=== PATIENT | female | born 1930 | race Caucasian/White ===

== ENCOUNTER → 2016-10-07 | Outpatient (CLI) | payer OTHER | LOC: BMCIMAGING 12:25 | PROVIDERS: ATTEND Internal Medicine | DX: I51.7 Cardiomegaly (principal); J98.4 Other disorders of lung; I77.89 Other specified disorders of arteries and arterioles; R53.83 Other fatigue; R63.4 Abnormal weight loss; R00.0 Tachycardia, unspecified ==

== ENCOUNTER 2016-11-26 12:08 | Emergency (ER) | payer OTHER ==
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
[2016-11-26 13:28] VITALS: BP 158/85; PULSE 72; RESP 16; TEMP 97.7; O2SAT 94
== END 2016-11-26 13:33 | disposition home or self-care (01) ==
DX: K43.2 Incisional hernia without obstruction or gangrene (principal); J44.9 Chronic obstructive pulmonary disease, unspecified

== ENCOUNTER 2016-12-15 12:35 | Emergency (ER) | payer MEDICAID, OTHER ==
--- NOTE | 2016-12-15 12:54 | CPEKG ---
Heart Rate: 88 RR Interval: 682 P-R Interval: 170 QRSD Interval: 94 QT Interval: 372 QTC Interval: 450 P [place]: 0 QRS [place]: -29 T Wave [place]: 116 EKG Severity - ABNORMAL ECG - EKG Impression: SINUS RHYTHM EKG Impression: MULTIPLE ATRIAL PREMATURE COMPLEXES EKG Impression: LVH WITH SECONDARY REPOLARIZATION ABNORMALITY Electronically Signed By: Molly Harley 15-Dec-2016 21:16:05
--- NOTE | 2016-12-15 13:26 | EDPHY ---
H & P Time Seen by Provider: 12/15/16 12:59 HPI/ROS: CHIEF COMPLAINT: Left-sided chest pain HISTORY OF PRESENT ILLNESS: 86-year-old female with a history of COPD and atrial fibrillation presents with a one-week history of left-sided chest pain. The chest pain is intermittent and increases with deep inspiration and coughing. Onset of a productive cough 4 days ago, associated with exertional shortness of breath. She uses an inhaler 3 times daily as needed for shortness of breath. No fever. No prior history of pulmonary embolism or congestive heart failure. REVIEW OF SYSTEMS: Constitutional: No fever, no chills Eyes: No visual changes ENT: No sore throat Gastrointestinal: No nausea, no vomiting, no abdominal pain Genitourinary: No hematuria, no dysuria Musculoskeletal: No leg pain or swelling Skin: No rash Neurological: No headache, no numbness, no weakness Psychiatric: No depression Past Medical/Surgical History: COPD Social History: PCP: Dr. Bee Mena Smoking Status: Never smoked Physical Exam: General Appearance: Alert, [id number], normal respiratory rate Eyes: Pupils equal and round, no conjunctival pallor or injection ENT, Mouth: Mucous membranes moist Neck: Normal inspection Respiratory: Lungs are clear to auscultation, no wheezing Cardiovascular: irregularly irregular rate and rhythm Gastrointestinal: Abdomen is soft and nontender Neurological: A&O, nonfocal, normal gait Skin: Warm and dry, no rash Extremities: Nontender, no pedal edema Psychiatric: Mood and affect normal Constitutional: Initial Vital Signs Temperature (C) 36.3 C 12/15/16 12:39 Heart Rate 91 12/15/16 12:39 Respiratory Rate 22 H 12/15/16 12:39 Blood Pressure 151/103 H 12/15/16 12:39 O2 Sat (%) 89 L 12/15/16 12:39 O2 Delivery Mode Room Air O2 (L/minute) 2 Allergies/Adverse Reactions: aspirin [Aspirin] Allergy (Severe, Verified 12/15/16 12:37) Other-Enter Comments codeine [Codeine] Allergy (Severe, Verified 12/15/16 12:37) Vomiting hylan G-F 20 [From Synvisc] Allergy (Severe, Verified 12/15/16 12:37) Swelling morphine [Morphine] Allergy (Severe, Verified 12/15/16 12:37) Vomiting rofecoxib [From Vioxx] Allergy (Severe, Verified 12/15/16 12:37) Swelling ciprofloxacin [From Cipro] Allergy (Verified 12/15/16 12:37) Swelling/neck,face,throat ciprofloxacin HCl [From Cipro] Allergy (Verified 12/15/16 12:37) Swelling/neck,face,throat Home Medications: Medication Instructions Recorded Synthroid 11/26/16 Doxycycline Hyclate 100 mg PO BID #20 tablet 12/15/16 Medical Decision Making - Diagnostics EKG Interpretation: EKG interpreted by me reveals atrial fibrillation, ventricular rate 88, LVH. Imaging Results: Chest x-ray independently reviewed by me reveals no acute disease. CT pulmonary angiogram discussed with the radiologist reveals a in ascending aortic aneurysm, 5.1 cm in diameter. No pulmonary embolism or pneumonia. Imaging: Discussed imaging studies w/ section maintainer Radiologist ED Course/Re-evaluation: This patient presents with left-sided chest pain, cough and hypoxia. This is concerning for acute pulmonary embolism versus pneumonia. Stat EKG reveals no evidence of ischemia. Stat chest x-ray reveals no acute infiltrate. CT pulmonary angiogram reveals an aneurysm of the ascending aorta, 5.1 cm in diameter, slightly larger than previously seen. This was discussed with the patient and her daughter. They are aware of the aneurysm as well as abdominal aneurysms. The patient declines further evaluation of the aneurysm and does not desire surgery. She clearly understands the risks and benefits of this decision and is a competent decision maker. She also declines admission. She understands that her oxygen saturation is borderline at 89% on room air. She states that she does not desire supplemental oxygen and only feels short of breath when climbing stairs at home. This is not far from her baseline. She would like to go home with her daughter. I feel that she is safe and stable for discharge home. I do not suspect acute coronary syndrome in this patient. I will give her antibiotics for possible early pneumonia. She will take Tylenol for left-sided chest pain. She has a home inhaler which she will use as needed. She will return to the emergency department for worsening symptoms or any concerns. Differential Diagnosis: Differential diagnosis includes though it is not limited to pneumonia, pneumothorax, pulmonary embolism, aortic dissection, pericarditis, acute coronary syndrome. - Data Points Laboratory Results: Laboratory Results 12/15/16 13:45 05/01/17 13:45 Medications Given: Discontinued Medications Albuterol/Ipratropium (Duoneb) 3 ml IH EDNOW ONE Stop: 12/15/16 16:05 Last Admin: 12/15/16 16:16 Dose: 3 ml Departure - Departure Disposition: Home, Routine, Self-Care Clinical Impression: Acute bronchitis Qualifiers: Bronchitis organism: unspecified organism Qualified Code(s): J20.9 - Acute bronchitis, unspecified Condition: Good Instructions: Acute Bronchitis (ED) Referrals: Bee Cheng MD [Primary Care Provider] - As per Instructions Prescriptions: Doxycycline Hyclate 100 mg PO BID #20 tablet
[2016-12-15] MEDS ORDERED: IOPAMIDOL (ISOVUE 370) 100 ML BTL IV ONE (13:54)
[2016-12-15 13:55] LABS: % IMMATURE GRANULYOCYTES 0.3 % (0.0-1.1); ABSOLUTE IMMATURE GRANULOCYTES 0.03 10^3/uL (0.00-0.10); ADD DIFF? NO; ADD MORPH? NO; ADD SCAN? NO; ATYPICAL LYMPHOCYTE FLAG 20 (0-99); FRAGMENT RBC FLAG 30 (0-99); HEMATOCRIT 42.3 % (38.0-47.0); HEMOGLOBIN 14.1 g/dL (12.6-16.3); LEFT SHIFT FLG 0 (0-99); LIPEMIA HEMOLYSIS FLAG 80 (0-99); MEAN CELL HEMOGLOBIN 31.5 pg (27.9-34.1); MEAN CELL HEMOGLOBIN CONCENTR. 33.3 g/dL (32.4-36.7); MEAN CELL VOLUME 94.4 fL (81.5-99.8); MEAN PLATELET VOLUME 10.8 fL (8.7-11.7); PLATELET CLUMPS FLAG 50 (0-99); PLATELET COUNT 202 10^3/uL (150-400); RED BLOOD CELL COUNT 4.48 10^6/uL (4.18-5.33); RED CELL DISTRIBUTION WIDTH 14.3 % (11.5-15.2)
[2016-12-15 14:15] LABS: ANION GAP 10 mEq/L (8-16); CALCIUM 9.5 mg/dL (8.5-10.4); CARBON DIOXIDE 24 mEq/l (22-31); CHLORIDE 103 mEq/L (97-110); CREATININE 0.6 mg/dL (0.6-1.0); GLOMERULAR FILTRATION RATE > 60; GLUCOSE 131 mg/dL (70-100); POTASSIUM 4.2 mEq/L (3.5-5.2); SODIUM 137 mEq/L (134-144)
[2016-12-15 14:24] LABS: TROPONIN I < 0.012 ng/mL (0-0.034)
[2016-12-15] MEDS ORDERED: IPRATROPIUM/ALBUTEROL 3 ML DEYVIAL IH ONE (16:04)
[2016-12-15 16:16] VITALS: PULSE 78
[2016-12-15 16:36] VITALS: BP 130/87; RESP 20; TEMP 98.1; O2SAT 91
== END 2016-12-15 16:47 | disposition home or self-care (01) ==
DX: J20.9 Acute bronchitis, unspecified (principal); J44.9 Chronic obstructive pulmonary disease, unspecified
CPT/HCPCS: 71275; 93005; 99285; Q9967; 82947-QW

== ENCOUNTER → 2018-02-11 | Outpatient (CLI) | payer OTHER | LOC: FIMAGING 15:17 | PROVIDERS: ATTEND Internal Medicine | DX: G31.9 Degenerative disease of nervous system, unspecified (principal); R90.82 White matter disease, unspecified; Z86.79 Personal history of other diseases of the circulatory system ==

== ENCOUNTER 2018-05-08 07:45 | Inpatient (IN) | payer OTHER ==
--- NOTE | 2018-05-08 07:57 | EDPHY ---
H & P Stated Complaint: sharp pain in throat/dizzyness hypotension Time Seen by Provider: 05/08/18 07:57 HPI/ROS: CHIEF COMPLAINT: Throat pain HISTORY OF PRESENT ILLNESS: The patient presents to the ED after she awoke today at 6 in the morning with a sharp pressure in her throat. The patient reports that her symptoms have somewhat improved. She denies any chest pain or shortness of breath. There is no radiation of the pain to her back. Patient does have a history of atrial fibrillation. She also has a history of a known thoracic aneurysm. She has declined surgical intervention for this condition in the past. The last imaging was in 2017 and the diameter of the thoracic aortic aneurysm was noted to be 5.1 cm. The patient denies any fever, cough or congestion. She denies any recent fall or trauma. REVIEW OF SYSTEMS: A comprehensive 10 point review of systems is otherwise negative aside from elements mentioned in the history of present illness. Source: Patient - Personal History Current Tetanus Diphtheria and Acellular Pertussis (TDAP): Yes Tetanus Vaccine Date: 2009 - Medical/Surgical History Hx Asthma: No Hx Chronic Respiratory Disease: Yes Hx Diabetes: Yes Hx Cardiac Disease: Yes Hx Renal Disease: No Hx Cirrhosis: No Hx Alcoholism: No Hx HIV/AIDS: No Hx Splenectomy or Spleen Trauma: Yes Other PMH: MED- BORDERLINE DIABETIC, HLD, CHRONIC PAIN, ARTHRITIS, bladder issues, COPD afib. SURGERIES- ORTHO, DARREL, SPLEENECTOMY - Social History Smoking Status: Never smoked - Physical Exam Exam: General Appearance: Alert, no distress Eyes: Pupils equal and round no pallor or injection ENT, Mouth: Mucous membranes moist Respiratory: There are no retractions, lungs are clear to auscultation Cardiovascular: Irregular, 2/6 systolic ejection murmur Gastrointestinal: Abdomen is soft and nontender, no masses, bowel sounds normal Neurological: A&O, normal motor function, normal sensory exam, normal cranial nerves Skin: Warm and dry, no rashes Musculoskeletal: Neck is supple nontender Extremities: symmetrical, full range of motion Psychiatric: Patient is oriented X 3, there is no agitation Constitutional: Initial Vital Signs Temperature (C) 36.6 C 05/08/18 07:51 Heart Rate 59 L 05/08/18 07:51 Respiratory Rate 18 05/08/18 07:51 Blood Pressure 89/60 L 05/08/18 07:51 O2 Sat (%) 94 05/08/18 07:51 O2 Delivery Mode Room Air Allergies/Adverse Reactions: aspirin [Aspirin] Allergy (Severe, Verified 05/08/18 07:48) Other-Enter Comments codeine [Codeine] Allergy (Severe, Verified 05/08/18 07:48) Vomiting hylan G-F 20 [From Synvisc] Allergy (Severe, Verified 05/08/18 07:48) Swelling morphine [Morphine] Allergy (Severe, Verified 05/08/18 07:48) Vomiting rofecoxib [From Vioxx] Allergy (Severe, Verified 05/08/18 07:48) Swelling ciprofloxacin [From Cipro] Allergy (Verified 05/08/18 07:48) Swelling/neck,face,throat ciprofloxacin HCl [From Cipro] Allergy (Verified 05/08/18 07:48) Swelling/neck,face,throat Home Medications: Medication Instructions Recorded Levothyroxine [Synthroid 50 mcg 50 mcg PO DAILY06 05/08/18 (*)] Naproxen Sodium [Aleve 220 MG (*)] 220 mg PO BID PRN 05/08/18 Medical Decision Making - Diagnostics EKG Interpretation: EKG: Complete interpretation has been separately recorded in the [facility] archive. Summary impression: Atrial fibrillation, rate 53, LVH nonspecific T- wave inversions noted in the lateral precordial leads unchanged from her prior EKG in 2013. Imaging Results: Imaging Impressions Chest/Thorax CTA 05/08/18 08:39 Impression: 1. Negative for pulmonary embolic disease. 2. Mediastinal hematoma is suspected with no definite focal area of active extravasation identified. 3. Negative for aortic dissection. 4. See above report for additional findings. Results called and discussed with Davin Rodriguez M.D. on May 08, 2018 at 9:42 a.m. ED Course/Re-evaluation: The patient presents to the ED with a complaint of acute throat discomfort. The patient denies any antecedent infectious symptoms and she had no clinical evidence of pharyngitis on exam. Strep test is negative. I reviewed the patient's past medical records and see that she has a known thoracic aneurysm which she has declined surgery for. The patient did undergo a CT scan of the chest which did demonstrate an abnormality in the mediastinal space. There is no obvious dissection however the radiologist could not exclude the possibility of a mediastinal hematoma. The patient's blood pressure is adequately controlled. Her EKG demonstrates no evidence of ischemia and her troponin is normal. I did consult with the on-call cardiothoracic surgeon Dr. Dickinson at 9:45am who will reviewed the patient's CT scan. Dr. Dickinson was having technical difficulties remotely reviewing the patient's CT scan. I did curbside Dr. Cage who reviewed the patient's CT scan who felt that the patient was experiencing an aortic dissection. I had a discussion with the patient and family members about the risks and benefits of surgery. They do understand that aortic dissection has a high mortality of 25% in 6 hours. The patient would like her daughter to arrive prior to making the decision for surgery. Update at 12:00 p.m.: The patient was seen by the cardiothoracic surgery service in the emergency department. The patient's daughter has arrived. They have elected not to pursue surgery at this point time. Plan will be for admission to the hospital for medical management. Consultation was made with the hospitalist service at 12:00. She will be admitted by . Differential Diagnosis: Differential diagnosis considered includes aortic dissection, acute coronary syndrome, pericarditis, myocarditis, pharyngitis Critical Care Time: Critical care time exclusive of procedures and exclusive of the PA's time was 65 minutes, performed by myself, Davin Rodriguez MD. The patient presents to the ED with an acute aortic dissection. Emergent consultation was requested from the CT surgery service. She has declined operative intervention will be admitted to the intensive care unit for medical treatment. - Data Points Laboratory Results: Laboratory Results 05/08/18 08:30 05/08/18 08:30 05/08/18 05/08/18 05/08/18 09:35 08:37 08:34 WBC RBC Hgb POC Hgb 14.6 gm/dL gm/dL (12.6-16.3) Hct POC Hct 43 % % (38-47) MCV MCH MCHC RDW Plt Count MPV Neut % (Auto) Lymph % (Auto) [place] % (Auto) Eos % (Auto) Baso % (Auto) Nucleat RBC Rel Count Absolute Neuts (auto) Absolute Lymphs (auto) Absolute Monos (auto) Absolute Eos (auto) Absolute Basos (auto) Absolute Nucleated RBC Immature Gran % Immature Gran # PT INR APTT POC Sodium 146 mEq/L H mEq/L (135-145) Sodium POC Potassium 3.6 mEq/L mEq/L (3.3-5.0) Potassium POC Chloride 110 mEq/L mEq/L (97-110) Chloride Carbon Dioxide Anion Gap POC BUN 17 mg/dL mg/dL (7-23) BUN Creatinine POC Creatinine 0.6 mg/dL mg/dL (0.6-1.0) Estimated GFR Glucose POC Glucose 94 mg/dL mg/dL (70-100) Calcium POC Troponin I 0.02 ng/mL ng/mL (0.00-0.08) Group A Strep Screen NEGATIVE (NEGATIVE) 05/08/18 05/08/18 05/08/18 08:30 08:30 08:30 WBC 8.44 10^3/uL 10^3/uL (3.80-9.50) RBC 4.20 10^6/uL 10^6/uL (4.18-5.33) Hgb 13.2 g/dL g/dL (12.6-16.3) POC Hgb Hct 40.1 % % (38.0-47.0) POC Hct MCV 95.5 fL fL (81.5-99.8) MCH 31.4 pg pg (27.9-34.1) MCHC 32.9 g/dL g/dL (32.4-36.7) RDW 14.6 % % (11.5-15.2) Plt Count 217 10^3/uL 10^3/uL (150-400) MPV 10.2 fL fL (8.7-11.7) Neut % (Auto) 79.6 % H % (39.3-74.2) Lymph % (Auto) 10.7 % L % (15.0-45.0) [place] % (Auto) 7.9 % % (4.5-13.0) Eos % (Auto) 1.1 % % (0.6-7.6) Baso % (Auto) 0.2 % L % (0.3-1.7) Nucleat RBC Rel Count 0.0 % % (0.0-0.2) Absolute Neuts (auto) 6.72 10^3/uL H 10^3/uL (1.70-6.50) Absolute Lymphs (auto) 0.90 10^3/uL L 10^3/uL (1.00-3.00) Absolute Monos (auto) 0.67 10^3/uL 10^3/uL (0.30-0.80) Absolute Eos (auto) 0.09 10^3/uL 10^3/uL (0.03-0.40) Absolute Basos (auto) 0.02 10^3/uL 10^3/uL (0.02-0.10) Absolute Nucleated RBC 0.00 10^3/uL 10^3/uL (0-0.01) Immature Gran % 0.5 % % (0.0-1.1) Immature Gran # 0.04 10^3/uL 10^3/uL (0.00-0.10) PT 14.1 SEC SEC (12.0-15.0) INR 1.07 (0.83-1.16) APTT 30.9 SEC SEC (23.0-38.0) POC Sodium Sodium 142 mEq/L mEq/L (135-145) POC Potassium Potassium 3.8 mEq/L mEq/L (3.3-5.0) POC Chloride Chloride 110 mEq/L mEq/L (97-110) Carbon Dioxide 21 mEq/l L mEq/l (22-31) Anion Gap 11 mEq/L mEq/L (8-16) POC BUN BUN 18 mg/dL mg/dL (7-23) Creatinine 0.6 mg/dL mg/dL (0.6-1.0) POC Creatinine Estimated GFR > 60 Glucose 97 mg/dL mg/dL (70-100) POC Glucose Calcium 9.2 mg/dL mg/dL (8.5-10.4) POC Troponin I Group A Strep Screen Point of Care Test Results: Chemistry 05/08/18 05/08/18 08:37 08:34 POC Sodium 146 mEq/L H mEq/L (135-145) POC Potassium 3.6 mEq/L mEq/L (3.3-5.0) POC Chloride 110 mEq/L mEq/L (97-110) POC BUN 17 mg/dL mg/dL (7-23) POC Creatinine 0.6 mg/dL mg/dL (0.6-1.0) POC Glucose 94 mg/dL mg/dL (70-100) POC Troponin I 0.02 ng/mL ng/mL (0.00-0.08) ISTAT H&H 05/08/18 08:37 POC Hgb 14.6 gm/dL gm/dL (12.6-16.3) POC Hct 43 % % (38-47) Departure - Departure Disposition: [facility] Inpatient Acute Clinical Impression: Aortic dissection Condition: Critical
[2018-05-08] MEDS ORDERED: IOPAMIDOL (ISOVUE 370) 100 ML BTL IV ONE (08:46)
[2018-05-08 08:50] LABS: PLATELET COUNT 217 10^3/uL (150-400)
--- NOTE | 2018-05-08 09:44 | CPEKG ---
Test Reason : OPEN Blood Pressure : / mmHG Vent. Rate : 053 BPM Atrial Rate : 050 BPM P-R Int : 270 ms QRS Dur : 109 ms QT Int : 497 ms P-R-T Axes : -67 -64 128 degrees QTc Int : 467 ms Atrial fibrillation Prolonged MT interval Left anterior fascicular block LVH with secondary repolarization abnormality Confirmed by Davin Rodriguez ([id number]) on 05/08/2018 9:43:57 AM Referred By: Confirmed By:Davin Rodriguez
[2018-05-08] MEDS ORDERED: PROTAMINE SULFATE 50 MG/5 ML VIAL IVP ONE (11:34)
[2018-05-08] MEDS ORDERED: NA BICARBONATE 50 MEQ/50 ML VIAL ONE (11:34)
[2018-05-08] MEDS ORDERED: MILRINONE/DEXTROSE/100 ML BAG IV ONE (11:34)
[2018-05-08] MEDS ORDERED: CALCIUM CHLORIDE 1 GM/10 ML INJ ONE ×2 (11:34→11:37)
[2018-05-08] MEDS ORDERED: DOPamine/DEXTROSE 400 MG/250 ML BAG IV ONE (11:35)
[2018-05-08] MEDS ORDERED: HEPARIN 10,000 UNIT/10 ML MDV (1,000 UNIT/ML) ONE ×2 (11:35→11:37)
[2018-05-08] MEDS ORDERED: niCARdipine/NACL/200 ML BAG IV ONE (11:35)
[2018-05-08] MEDS ORDERED: AMIODARONE HCL 150 MG/3 ML VIAL ONE ×2 (11:35→11:37)
[2018-05-08] MEDS ORDERED: ADENOSINE 6 MG/2 ML VIAL ONE (11:35)
[2018-05-08] MEDS ORDERED: ALBUMIN 5% 250 ML BOTTLE IV ONE (11:36)
[2018-05-08] MEDS ORDERED: ceFAZolin 1 GM VIAL ONE (11:36)
[2018-05-08] MEDS ORDERED: NITROGLYCERIN/D5W 50 MG/250 ML BOTTLE IV ONE (11:36)
[2018-05-08] MEDS ORDERED: LIDOCAINE 2% 100 MG/5 ML SYR ONE (11:37)
[2018-05-08] MEDS ORDERED: CITRATE DEXTROSE SOLN 500 ML BAG ONE (11:37)
[2018-05-08] MEDS ORDERED: MAGNESIUM SULFATE 1 GM/2 ML VIAL ONE (11:38)
[2018-05-08] MEDS ORDERED: methylPREDNISolone SOD SUCC 1 GM/8 ML VIAL ONE (11:38)
[2018-05-08] MEDS ORDERED: MINERAL OIL 10 ML VIAL ONE (11:39)
[2018-05-08] MEDS ORDERED: PROPOFOL/EMULSION 500 MG/50 ML BOTTLE IV ONE (11:40)
[2018-05-08 11:52] LABS: INR 1.07 (0.83-1.16); PROTIME(PATIENT) 14.1 SEC (12.0-15.0)
[2018-05-08] MEDS ORDERED: ROCURONIUM 100 MG/10 ML VIAL ONE (11:56)
[2018-05-08] MEDS ORDERED: ePHEDrine SULFATE 25 MG/5 ML SYR ONE (11:56)
[2018-05-08] MEDS ORDERED: ESMOLOL HCL 100 MG/10 ML VIAL IV ONE (11:56)
[2018-05-08] MEDS ORDERED: PHENYLEPHRINE HCL 100 MCG/ML SYR ONE (11:56)
--- NOTE | 2018-05-08 12:29 | ASMTCMCOM ---
CM Note CM Note Notes: Pt presented to the Emergency Department with acute throat pain. History includes a thoracic aneurysm without surgical treatment, borderline diabetes, HLD, chronic pain, arthritis, COPD, afib, and bladder issues. Pt is a and lives alone; her daughter is involved in her care. Pt will be admitted for further evaluation and treatment. Discharge needs remain unclear at this time. CM will continue to follow. Discharge Plan: To be determined Date Signed: 05/08/2018 12:28 PM Electronically Signed By:Alondra Valenzuela RN
[2018-05-08] MEDS ORDERED: hydrALAZINE 20 MG/ML VIAL IVP PRN (14:00)
[2018-05-08] MEDS: HYDROmorphONE/DILAUDID 1 MG/ML INJ IVP PRN (14:08)
--- NOTE | 2018-05-08 14:13 | PDGENHP ---
History and Physical - History of Present Illness History Information - Allergies/Home Medication List Allergies/Adverse Reactions: aspirin [Aspirin] Allergy (Severe, Verified 05/08/18 07:48) Other-Enter Comments codeine [Codeine] Allergy (Severe, Verified 05/08/18 07:48) Vomiting hylan G-F 20 [From Synvisc] Allergy (Severe, Verified 05/08/18 07:48) Swelling morphine [Morphine] Allergy (Severe, Verified 05/08/18 07:48) Vomiting rofecoxib [From Vioxx] Allergy (Severe, Verified 05/08/18 07:48) Swelling ciprofloxacin [From Cipro] Allergy (Verified 05/08/18 07:48) Swelling/neck,face,throat ciprofloxacin HCl [From Cipro] Allergy (Verified 05/08/18 07:48) Swelling/neck,face,throat Home Medications: Levothyroxine [Synthroid 50 mcg (*)] 50 mcg PO DAILY06 05/08/18 [Last Taken Unknown] Naproxen Sodium [Aleve 220 MG (*)] 220 mg PO BID PRN 05/08/18 [Last Taken ] - Social History Smoking Status: Never smoked Review of Systems Review of Systems: Physical Exam Physical Exam: Temp Pulse Resp BP Pulse Ox 36.9 C 75 22 H 116/88 H 92 05/08/18 11:35 05/08/18 12:45 05/08/18 12:45 05/08/18 12:45 05/08/18 12:45 Lab Data & Imaging Review 05/08/18 08:30 05/08/18 08:30 WBC 8.44 10^3/uL (3.80-9.50) 05/08/18 08:30 RBC 4.20 10^6/uL (4.18-5.33) 05/08/18 08:30 Hgb 13.2 g/dL (12.6-16.3) 05/08/18 08:30 POC Hgb 14.6 gm/dL (12.6-16.3) 05/08/18 08:37 Hct 40.1 % (38.0-47.0) 05/08/18 08:30 POC Hct 43 % (38-47) 05/08/18 08:37 MCV 95.5 fL (81.5-99.8) 05/08/18 08:30 MCH 31.4 pg (27.9-34.1) 05/08/18 08:30 MCHC 32.9 g/dL (32.4-36.7) 05/08/18 08:30 RDW 14.6 % (11.5-15.2) 05/08/18 08:30 Plt Count 217 10^3/uL (150-400) 05/08/18 08:30 MPV 10.2 fL (8.7-11.7) 05/08/18 08:30 Neut % (Auto) 79.6 % (39.3-74.2) H 05/08/18 08:30 Lymph % (Auto) 10.7 % (15.0-45.0) L 05/08/18 08:30 Sargent % (Auto) 7.9 % (4.5-13.0) 05/08/18 08:30 Eos % (Auto) 1.1 % (0.6-7.6) 05/08/18 08:30 Baso % (Auto) 0.2 % (0.3-1.7) L 05/08/18 08:30 Nucleat RBC Rel Count 0.0 % (0.0-0.2) 05/08/18 08:30 Absolute Neuts (auto) 6.72 10^3/uL (1.70-6.50) H 05/08/18 08:30 Absolute Lymphs (auto) 0.90 10^3/uL (1.00-3.00) L 05/08/18 08:30 Absolute Monos (auto) 0.67 10^3/uL (0.30-0.80) 05/08/18 08:30 Absolute Eos (auto) 0.09 10^3/uL (0.03-0.40) 05/08/18 08:30 Absolute Basos (auto) 0.02 10^3/uL (0.02-0.10) 05/08/18 08:30 Absolute Nucleated RBC 0.00 10^3/uL (0-0.01) 05/08/18 08:30 Immature Gran % 0.5 % (0.0-1.1) 05/08/18 08:30 Immature Gran # 0.04 10^3/uL (0.00-0.10) 05/08/18 08:30 PT 14.1 SEC (12.0-15.0) 05/08/18 08:30 INR 1.07 (0.83-1.16) 05/08/18 08:30 APTT 30.9 SEC (23.0-38.0) 05/08/18 08:30 POC Sodium 146 mEq/L (135-145) H 05/08/18 08:37 Sodium 142 mEq/L (135-145) 05/08/18 08:30 POC Potassium 3.6 mEq/L (3.3-5.0) 05/08/18 08:37 Potassium 3.8 mEq/L (3.3-5.0) 05/08/18 08:30 POC Chloride 110 mEq/L (97-110) 05/08/18 08:37 Chloride 110 mEq/L (97-110) 05/08/18 08:30 Carbon Dioxide 21 mEq/l (22-31) L 05/08/18 08:30 Anion Gap 11 mEq/L (8-16) 05/08/18 08:30 POC BUN 17 mg/dL (7-23) 05/08/18 08:37 BUN 18 mg/dL (7-23) 05/08/18 08:30 Creatinine 0.6 mg/dL (0.6-1.0) 05/08/18 08:30 POC Creatinine 0.6 mg/dL (0.6-1.0) 05/08/18 08:37 Estimated GFR > 60 05/08/18 08:30 Glucose 97 mg/dL (70-100) 05/08/18 08:30 POC Glucose 94 mg/dL (70-100) 05/08/18 08:37 Calcium 9.2 mg/dL (8.5-10.4) 05/08/18 08:30 POC Troponin I 0.02 ng/mL (0.00-0.08) 05/08/18 08:34 Group A Strep Screen NEGATIVE (NEGATIVE) 05/08/18 09:35 Patient ABO/Rh O POSITIVE 05/08/18 11:47 Antibody Screen NEGATIVE 05/08/18 11:47 Crossmatch IS Only See Detail 05/08/18 11:47 Bld Prod Verbal Order YES 05/08/18 11:47 Assessment & Plan Assessment: Full note to follow and be dictated. Patient seen and examined. 88 yo F with aortic dissection which appears thrombosed now secondary to no false lumen visible. She has previously declined surgical intervention for her aneurysms (has multiple) and therefore has not been undergoing surveillance. Presented to ED today with c/o neck pain. CT Chest highly concerning for acute ascending aortic dissection with thrombosis of false lumen. No evidence of active extravasation or pericardial effusion. Vitals stable (HR 60's and SBP 110's - 120's). Extensive discussion with patient and family in regards to options - they do not wish to pursue aggressive surgical treatment. They understand that not pursuing surgical intervention may be lethal and accept the risk. They also wish her to be DNR/DNI. If pursuing medical management only, recommend tight BP and HR control (ideally SBP ~120 or less and HR ~60) as well as pain control.
--- NOTE | 2018-05-08 14:16 | PDCONSULT ---
[facility] Note: Full note to follow and be dictated. Patient seen and examined. 88 yo F with aortic dissection which appears thrombosed now secondary to no false lumen visible. She has previously declined surgical intervention for her aneurysms (has multiple) and therefore has not been undergoing surveillance. Presented to ED today with c/o neck pain. CT Chest highly concerning for acute ascending aortic dissection with thrombosis of false lumen. No evidence of active extravasation or pericardial effusion. Vitals stable (HR 60's and SBP 110's - 120's). Extensive discussion with patient and family in regards to options - they do not wish to pursue aggressive surgical treatment. They understand that not pursuing surgical intervention may be lethal and accept the risk. They also wish her to be DNR/DNI. If pursuing medical management only, recommend tight BP and HR control (ideally SBP ~120 or less and HR ~60) as well as pain control.
[2018-05-08] MEDS ORDERED: ONDANSETRON 4 MG/2 ML VIAL IVP PRN (14:30)
[2018-05-08] MEDS ORDERED: oxyCODONE IR 5 MG TAB PO PRN (14:30)
[2018-05-08] MEDS: ACETAMINOPHEN 325 MG TAB PO PRN (15:12)
--- NOTE | 2018-05-08 15:12 | GHP ---
DATE OF ADMISSION: 05/08/2018 CHIEF COMPLAINT: Chest and throat pain. HISTORY: The patient is an 88-year-old female with a known thoracic ascending [facility], [facility] in the past. She awoke at 6:00 this morning with a pressure in her throat. She currently has chest pain throughout her chest, radiating to her back. It is pleuritic, continuous, 6/10. She also has an associated headache. She presented to the emergency room and was found to have an ascending aortic dissection. CT Surgery was consulted. She continues to be consis tent in her desire to not pursue surgery and understands that this has a high chance of being fatal w ithout intervention. She requests DNR. She is being admitted for observation and medical therapy. PAST MEDICAL HISTORY: 1. Thoracic aortic aneurysm and abdominal aortic aneurysm, as well as lower extremity aneurysms and a brain aneurysm. 2. Colon cancer, status post resection. 3. COPD. 4. Diabetes, type 2. 5. Perforated ulceration, status post [place]ro[place]. 6. Internal carotid artery aneurysm. 7. Atrial fibrillation. PAST SURGICAL HISTORY: Cholecystectomy, splenectomy. MEDICATIONS: Please see computer record for a full detailed list. ALLERGIES: Aspirin, codeine, Cipro. SOCIAL HISTORY: No smoking. No alcohol. She lives with her daughter. She uses a walker. She is i ndependent with ADLs. REVIEW OF SYSTEMS: Complete review of systems obtained. Review of systems negative regarding consti tutional, HEENT, GI, pulmonary, cardiovascular, , hematologic, endocrine, psych except for positive s and negatives as noted in HPI. FAMILY HISTORY: Reviewed, noncontributory to presenting complaint. PHYSICAL EXAMINATION: GENERAL: Well-developed, well-nourished female in no acute distress. VITAL S IGNS: Temperature 36.9, pulse 75, blood pressure 116/88, satting 92% on room air. EYES: Normal con junctivae. Pupils equal, round, reactive to light. ENT: Normal ears and nose. Hearing intact. __ teeth. Oropharynx moist. NECK: Trachea midline. No thyromegaly. CHEST: Normal respirat ory effort. LUNGS: Clear to auscultation bilaterally. CARDIOVASCULAR: Regular rate and rhythm. N o murmur. No extremity edema. ABDOMEN: Soft, nontender. No hepatosplenomegaly. SKIN: Warm, dry, intact without rash. MUSCULOSKELETAL: No cyanosis or clubbing. Strength 5/5 upper and lower extre mities. NEURO: Cranial nerves intact. Normal sensation to light touch. PSYCH: Alert and oriented x3. Normal mood and affect. Normal judgment and insight. Normal memory. LABS: White count 8.44, hematocrit 40.1, platelets 217. Sodium 142, potassium 3.8, chloride 110, bi carb 21, BUN 18, creatinine 0.6, glucose 96. EKG reviewed by me. My personal interpretation is atri al fibrillation, heart rate 53, with some lateral T-wave inversions. Troponins negative. CT angiogr am of the chest is negative for pulmonary embolus. She has a mediastinal hematoma versus dissection. I have personally spoken with Dr. Dickinson of CT Surgery, who has reviewed her CAT scan and believes she has a thrombosed ascending aortic dissection and clarified with her she did not want surgical int ervention. ASSESSMENT/PLAN: 1. Thrombosed ascending aortic dissection. She is declining surgery and understands the risk of simba th. She is a do not resuscitate. We will admit to intensive care unit for tight blood pressure and heart rate control. Goal systolic blood pressure is 120, and heart rate is 60. She is currently jaime ntaining that on her own without medication. Pain control with intravenous Dilaudid. 2. Atrial fibrillation. This has a slow rate without any need for medications. We will continue to watch closely. She is not on stroke prevention at baseline and would definitely not start it now gi kendall the acute bleed. 3. Multiple aneurysms. She has this thoracic aortic aneurysm, as well as an abdominal aortic aneury sm, some lower extremity aneurysms and a brain aneurysm, all of these prior. She has lived to age 88 without any ruptures, but I query if she may have an underlying collagen vascular disease. CODE STATUS: DNR. ADMISSION STATUS: We will admit to inpatient, as anticipate greater than [address] abilization for discharge. DVT PROPHYLAXIS: She is high risk but will not use pharmacologic prophylaxis due to bleeding concern s. We will use SCDs. /[id number]/MODL
--- NOTE | 2018-05-08 15:58 | PDMN ---
Medical Necessity Medical necessity: [facility] w/ thrombosed ascending aortic dissection, declining surgery, understands the risk of . Will medically tx in ICU for tight BP and HR control. Pain control w/ IV dilaudid. Hx afib, multiple aneurysms, admit to IP status as anticipate>2MN required for stabilization for d/c.
[2018-05-09] MEDS: ACETAMINOPHEN 325 MG TAB PO PRN ×2 (00:08→07:54)
[2018-05-09] MEDS: HYDROmorphONE/DILAUDID 1 MG/ML INJ IVP PRN ×2 (06:01→13:30)
[2018-05-09] MEDS: LEVOTHYROXINE 50 MCG TAB PO SCH (06:01)
--- NOTE | 2018-05-09 16:00 | HOSPPROG ---
Hospitalist Progress Note Assessment/Plan: * Thoracic ascending aortic dissection/leak of previously know aneurysm -continues to decline surgical management -stable so far on medical management but remains high risk -keep SBP 120, HR 60 * Afib -rate slow without meds -no stroke prevention * Multiple aneurysm - TAA, AAA, LE, brain -? underlying collagen issue Possible home tomorrow if remains stable. Consult palliative given desired non -aggressive approach. Subjective: Pain better Objective: Vital Signs Temp Pulse Resp BP Pulse Ox 36.5 C 71 20 120/89 H 96 05/09/18 15:34 05/09/18 15:34 05/09/18 12:00 05/09/18 15:34 05/09/18 15:34 05/08/18 05/09/18 05/10/18 05:59 05:59 05:59 Intake Total 600 Balance 600 PT 14.1 SEC (12.0-15.0) 05/08/18 08:30 INR 1.07 (0.83-1.16) 05/08/18 08:30 High risk d/w Dr. gris Dawson regarding treatment plan, ICU rounds, transfer to lower level of care tele - slow afib Recheck CBC, chem7 in am Some increased pain this pm - took dose IV Dilaudid to control - Physical Exam Constitutional: no apparent distress, appears nourished, not in pain Cardiovascular: regular rate and rhythym, no murmur, rub, or gallop Respiratory: no respiratory distress, no rales or rhonchi, clear to auscultation Gastrointestinal: normoactive bowel sounds, soft, non-tender abdomen, no palpable masses Skin: no rashes or abrasions, no fluctuance, no induration Neurologic: AAOx3, sensation intact bilaterally ICD10 Worksheet Patient Problems: Problems Problem Status Onset Aortic dissection Acute Acute bronchitis Acute Hematochezia Acute
[2018-05-09] MEDS: HYDROmorphone HCL 0.5 MG/0.5 ML SYR IVP PRN ×2 (17:29→23:17)
[2018-05-09] MEDS: traMADol 50 MG TAB PO PRN (21:17)
[2018-05-10] MEDS: LEVOTHYROXINE 50 MCG TAB PO SCH (04:11)
[2018-05-10 04:43] LABS: PLATELET COUNT 194 10^3/uL (150-400)
--- NOTE | 2018-05-10 13:34 | HOSPPROG ---
Hospitalist Progress Note Assessment/Plan: * Thoracic ascending aortic dissection/leak of previously know aneurysm -declines surgical management -stable so far on medical management but remains high risk -keep SBP 120, HR 60 -change to PO pain meds * Afib -rate slow without meds -no stroke prevention * Multiple aneurysm - TAA, AAA, LE, brain -? underlying collagen issue * Hypoxia - check CXR Palliative care consult - may need hospice if fails to improve If better, then SNF Subjective: Some increased pain overnight - took IV dilaudid Objective: Vital Signs Temp Pulse Resp BP Pulse Ox 36.6 C 80 18 92/68 L 96 05/10/18 11:19 05/10/18 11:19 05/10/18 11:19 05/10/18 11:19 05/10/18 11:19 Laboratory Results 05/10/18 04:12 05/10/18 04:12 05/09/18 05/10/18 05/11/18 05:59 05:59 05:59 Intake Total 600 590 120 Output Total 1 Balance 600 589 120 PT 14.1 SEC (12.0-15.0) 05/08/18 08:30 INR 1.07 (0.83-1.16) 05/08/18 08:30 using IV dilaudid for pain - Physical Exam Constitutional: no apparent distress, appears nourished, not in pain Cardiovascular: regular rate and rhythym, no murmur, rub, or gallop Respiratory: no respiratory distress, no rales or rhonchi, clear to auscultation Gastrointestinal: normoactive bowel sounds, soft, non-tender abdomen, no palpable masses Skin: no rashes or abrasions, no fluctuance, no induration Neurologic: AAOx3, sensation intact bilaterally Psychiatric: interacting appropriately, not anxious, not encephalopathic, thought process linear ICD10 Worksheet Patient Problems: Problems Problem Status Onset Hematochezia Acute Acute bronchitis Acute Aortic dissection Acute
--- NOTE | 2018-05-10 14:22 | ASMTCMCOM ---
CM Note CM Note Notes: 05/10/2018 Case Management Note Met w/pt, son in law Teddy Landeros [phone] ( to daughter SIMONE Weir [phone]), and granddaughter (daughter of Kenan) Nancy [phone]. Nancy identified herself as a speech therapist with the [facility]. Carmella is home with a viral stomach illness. Discussed PT recommendation for SNF rehab. Pt and family in agreement. First choice is [facility], pt has previous stay there and family is in [place]. Second choice is [facility], third is [facility]. Faxed referrals. Maranda from [facility] met w/family. Pt agreeable to [facility] following outpatient. Please see note in paper chart from Maranda. Case Management d/c poc: [facility] pending acceptance with [facility]. Case Management to follow. Date Signed: 05/10/2018 02:22 PM Electronically Signed By:Angie Ma RN
[2018-05-11] MEDS: LEVOTHYROXINE 50 MCG TAB PO SCH (02:47)
[2018-05-11 04:16] LABS: PLATELET COUNT 186 10^3/uL (150-400)
--- NOTE | 2018-05-11 10:09 | HOSPPROG ---
Hospitalist Progress Note Assessment/Plan: * Thoracic ascending aortic dissection/leak of previously know aneurysm -declines surgical management -keep SBP 120, HR 60 -pain is stable and well controlled on PO meds * Afib -now with RVR - start low dose metoprolol -no stroke prevention * Multiple aneurysm - TAA, AAA, LE, brain -? underlying collagen issue * Hypoxia/SOB - suspect related to leaking aneurysm She is slowly worsening which is concerning. Now with rapid afib, increased WBC , new hypoxia/SOB and increased weakness. Will check ECHO for prognostication. I discussed possible hospice dispo with her this morning and she is open to it. Will continue to monitor inpatient. If she continues to worsen, hospice will be her best option. If she stabilizes, then SNF for rehab. She is not stable for SNF today. Subjective: Chest pain a little better Objective: Vital Signs Temp Pulse Resp BP Pulse Ox 36.6 C 90 16 105/86 H 96 05/11/18 04:00 05/11/18 04:00 05/11/18 04:00 05/11/18 04:00 05/11/18 04:00 Laboratory Results 05/11/18 03:58 05/10/18 04:12 05/10/18 05/11/18 05/12/18 05:59 05:59 05:59 Intake Total 590 745 Output Total 1 Balance 589 745 PT 14.1 SEC (12.0-15.0) 05/08/18 08:30 INR 1.07 (0.83-1.16) 05/08/18 08:30 CXR viewed, my personal interpretation is - mediastinal widening tele reviewed - rapid afib - Time Spent With Patient Time Spent with Patient: greater than 35 minutes Time Spent with Patient: Greater than 35 minutes spent on this patients care, greater than 50% of time spent counseling, educating, and coordinating care regarding the above mentioned plan. - Physical Exam Constitutional: no apparent distress, appears nourished, not in pain Cardiovascular: regular rate and rhythym, no murmur, rub, or gallop Respiratory: no respiratory distress, no rales or rhonchi, clear to auscultation Gastrointestinal: normoactive bowel sounds, soft, non-tender abdomen, no palpable masses Skin: no rashes or abrasions, no fluctuance, no induration Neurologic: AAOx3, sensation intact bilaterally Psychiatric: interacting appropriately, not anxious, not encephalopathic, thought process linear ICD10 Worksheet Patient Problems: Problems Problem Status Onset Hematochezia Acute Acute bronchitis Acute Aortic dissection Acute
[2018-05-11] MEDS: METOPROLOL TARTRATE 25 MG TAB PO SCH ×2 (10:15→20:17)
--- NOTE | 2018-05-11 16:02 | ASMTCMCOM ---
CM Note CM Note Notes: CM discussed palliative care, hospice care and in-pt hospice with family. They have decided to wait until pt's ultrasound results from today and the physician's reccomendations are shared with them to revisit what would make the most sense for pt. CM to follow, D/C Plan: SNF rehab and palliative vs in-pt hospice vs SNF and hospice. Date Signed: 05/11/2018 04:01 PM Electronically Signed By:Ale Adame
--- NOTE | 2018-05-11 17:06 | ECHO ---
[email or web address] [address] [address] Main: [phone] Fax: Transthoracic Echocardiogram Name: AYAZ HEDRICK MR#: [id number] Study Date: 05/11/2018 Study Time: 11:26 AM Date of : 1930 Age: 88 year(s) Height: 152.4 cm (60 in.) Weight: 49.9 kg (110 lb.) BSA: 1.45 m2 Gender: Female Examination: Echo Indication: aortic dissection, refused surgery Image Quality: Adequate Contrast: Requested by: Nilam Prince BP: 89 mmHg/65 mmHg Heart Rate: Rhythm: Indication: aortic dissection, refused surgery Procedure Staff Administrative Supervisor: Dhara Lopez [facility] Reading Physician: Faith Norman MD Requesting Provider: Conclusions: Normal size left ventricle. Mild concentric LV hypertrophy. Normal global systolic LV function. EF is 63 %. No regional wall motion abnormality. Grade 2 diastolic dysfunction (pseudonormalized LV filling pattern). Normal size right ventricle. Normal RV function. The left atrium is mildly dilated. The right atrium is mildly dilated. Mild mitral valve regurgitation is present. No aortic valve stenosis is present. Moderate aortic valve regurgitation is present. Mild to moderate tricuspid valve regurgitation. The pulmonary artery pressure is mildly increased. Dilated ascending aorta measuring 4.9 cm. Small pericardial effusion. No echocardiographic evidence of hemodynamic compromise. Compared with prior study dated 02/01/2015 ascending aorta appears larger. AR slightly worse. Estimated PA pressure slightly lower. Measurements: Chambers Valvular Assessment AV/MV Valvular Assessment TV/PV Normal Normal Normal Name Value Range Name Value Range Name Value Range Ao Marii (2D): 3.7 cm (1.4 cm-2.6 AV Vmax: 1.60 m/s (1 m/s-1.7 TR Vmax: 3.23 mm/s ( - ) cm) m/s) TR PGmax: 42 mmHg ( - ) IVSd (2D): 1.0 cm (0.6 cm-1.1 AV maxP mmHg ( - ) syst. PAP: 47 mmHg ( - ) cm) AV meanP mmHg ( - ) Patient: AYAZ HEDRICK Study Date: 05/11/2018 Page 1 of 2 11:26 AM LVDd (2D): 3.9 cm (3.9 cm-5.3 CORTNEY (VTI): 1.8 cm ( - ) PV Vmax: 0.90 m/s (0.6 m/s-0.9 cm) AR (PHT): 767 ms ( - ) m/s) LVDs (2D): 2.9 cm (2.1 cm-4 MV E Vmax: 0.81 m/s ( - ) PV PGmax: 3 mmHg ( - ) cm) MV A Vmax: 0.63 m/s ( - ) LVPWd (2D): 1.0 cm ( - ) MV E/A: 1.29 ( - ) LVOTd 2.0 cm 2.0 cm mm MV PHT: 0.049 s ( - ) LVEF (MOD4): 63 % (>=55 %) MVA (PHT): 4.5 s ( - ) RVDd(2D): 2.5 cm (1.9 cm-3.8 cmmm) Continued Measurements: Chambers Valvular Assessment AV/MV Valvular Assessment TV/PV Name Value Name Value Name Value LADs: 3.5 cm MV DecTime: 173 m/s CVP (est.): 5 mmHg LA Volume: 54 ml MV E' Septal: 0.06 m/s LA Volume Index: 37.2 ml/m2 MV E/E' Septal: 13.50 RA Area: 23.4 cm2 MV E/E' Lateral: 11.40 AR Vmax: 4.29 cm/s AR VTI: 204.0 cm Additional Vessels Name Value Ao Ascendin.9 cm Findings: Left Ventricle: Normal size left ventricle. Mild concentric LV hypertrophy. Normal global systolic LV function. EF is 63 %. No regional wall motion abnormality. Grade 2 diastolic dysfunction (pseudonormalized LV filling pattern). Right Ventricle: Normal size right ventricle. Normal RV function. Left Atrium: The left atrium is mildly dilated. Right Atrium: The right atrium is mildly dilated. Mitral Valve: Mild-moderate mitral annular calcification. Mild mitral valve regurgitation is present. Aortic Valve: The aortic valve is tri-leaflet. Aortic sclerosis is present. No aortic valve stenosis is present. Moderate aortic valve regurgitation is present. Tricuspid Valve: The tricuspid valve is normal in appearance and function. Mild to moderate tricuspid valve regurgitation. The pulmonary artery pressure is mildly increased. Pulmonic Valve: The pulmonic valve is normal in appearance and function. Aorta: The aorta is normal. Normal size aortic root measuring 3.7 cm. Dilated ascending aorta measuring 4.9 cm. Pericardium: Small pericardial effusion. Evidence suggestive of hemodynamic compromise. No echocardiographic evidence of hemodynamic compromise. There is a pleural effusion present. (No Signature Object) Patient: AYAZ HEDRICK Study Date: 05/11/2018 Page 2 of 2 11:26 AM [id number]
[2018-05-11] MEDS: traMADol 50 MG TAB PO PRN (18:42)
[2018-05-11] MEDS: ACETAMINOPHEN 325 MG TAB PO PRN (20:20)
[2018-05-12 04:07] LABS: PLATELET COUNT 198 10^3/uL (150-400)
[2018-05-12] MEDS: LEVOTHYROXINE 50 MCG TAB PO SCH (05:20)
[2018-05-12] MEDS: METOPROLOL TARTRATE 25 MG TAB PO SCH ×2 (10:45→21:38)
[2018-05-12] MEDS ORDERED: NS 1,000 ML IV SCH (11:15)
--- NOTE | 2018-05-12 14:06 | HOSPPROG ---
Hospitalist Progress Note Assessment/Plan: * Thoracic ascending aortic dissection/leak of previously know aneurysm -declines surgical management -keep SBP 120, HR 60 -pain is stable and well controlled on PO meds -per CT surgery there is a chance this could clot off and stabilize -patient and family understand this is fatal if it continues to leak -H/H slowly decreasing - follow until stable * Afib -intermittent RVR - low dose metoprolol as BP tolerates -no stroke prevention due to acute bleed * Multiple aneurysm - TAA, AAA, LE, brain -? underlying collagen issue * Hypoxia/SOB - suspect related to leaking aneurysm -CXR with mediastinal widening but otherwise negative * Hypotension - suspect hypovolemia due to anemia + diarrhea -IVF * Diarrhea - all household members are sick - suspect viral They understand Hospice dispo is an option but continue to hope this will clot off and she will stabilize. If she starts to clearly decline then comfort measures. If she stabilized then [facility] for SNF. Palliative care following. Subjective: CP almost gone. Diarrhea x 2 this am Objective: Vital Signs Temp Pulse Resp BP Pulse Ox 36.6 C 81 14 91/67 L 95 05/12/18 11:08 05/12/18 11:08 05/12/18 11:08 05/12/18 11:08 05/12/18 11:08 Laboratory Results 05/12/18 03:43 05/12/18 03:43 05/11/18 05/12/18 05/13/18 05:59 05:59 05:59 Intake Total 745 1000 Balance 745 1000 PT 14.1 SEC (12.0-15.0) 05/08/18 08:30 INR 1.07 (0.83-1.16) 05/08/18 08:30 ECHO - enlarged aorta tele -rate controlled afib - Time Spent With Patient Time Spent with Patient: greater than 35 minutes (discussing options with patient and family, hospice offered) Time Spent with Patient: Greater than 35 minutes spent on this patients care, greater than 50% of time spent counseling, educating, and coordinating care regarding the above mentioned plan. - Physical Exam Constitutional: no apparent distress, appears nourished, not in pain Cardiovascular: regular rate and rhythym, no murmur, rub, or gallop Respiratory: no respiratory distress, no rales or rhonchi, clear to auscultation Gastrointestinal: normoactive bowel sounds, soft, non-tender abdomen, no palpable masses Skin: no rashes or abrasions, no fluctuance, no induration Neurologic: AAOx3, sensation intact bilaterally Psychiatric: interacting appropriately, not anxious, not encephalopathic, thought process linear ICD10 Worksheet Patient Problems: Problems Problem Status Onset Hematochezia Acute Acute bronchitis Acute Aortic dissection Acute
[2018-05-12] MEDS: traMADol 50 MG TAB PO PRN (21:40)
[2018-05-13 03:44] LABS: PLATELET COUNT 212 10^3/uL (150-400)
--- NOTE | 2018-05-13 06:11 | GCON ---
INITIAL CONSULTATION DATE OF CONSULTATION: 05/08/2018 CONSULTING SERVICE: Cardiothoracic Surgery. REASON FOR CONSULTATION: Intramural hematoma. HISTORY OF PRESENT ILLNESS: The patient is an 88-year-old female with multiple known arterial aneury sms, for which she has refused routine followup, as well as intervention in the past. Earlier this m orning when waking up, she noticed some pain radiating from the upper chest into the throat and jaw. She also noted some upper chest pain, which was also noted to be in the back as well between the ron ulder blades. She also complained of a headache during this time, and given the constellation of sym ptoms, she became concerned and presented to the emergency department for further evaluation. She un derwent a CT angiogram of the chest, which showed an intramural hematoma versus sub adventitial hemat kaleb. Given these findings, cardiothoracic surgery evaluation was requested for potential surgical re pair. Currently, she notes that her pain is better, though still present. 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 Colon cancer, COPD, usl-rnpwagy-ehoiyxwlt diabetes, atrial fibrillation, hypothyr oidism. PAST SURGICAL HISTORY: Cholecystectomy, partial colectomy, splenectomy. ALLERGIES: Aspirin, codeine, and ciprofloxacin. MEDICATIONS: Levothyroxine and Naprosyn. SOCIAL HISTORY: The patient denies any smoking history, as well as any significant alcohol intake. She lives with her daughter. FAMILY HISTORY: Noncontributory. REVIEW OF SYSTEMS: Negative other than as noted in the HPI. PHYSICAL EXAM: VITAL SIGNS: Temperature of 36.9, heart rate of 67, blood pressure 124/81, respirato ry rate of 19, O2 saturation 97% on room air. GENERAL: The patient is awake, alert, and oriented x3 . She is in no acute distress. HEENT: Normocephalic, atraumatic. No evidence of icterus. NECK: No JVD. No tracheal deviation. LUNGS: Clear to auscultation bilaterally. HEART: Regular rate and rhythm. ABDOMEN: Soft, nontender, nondistended. EXTREMITIES: Warm and well perfused without any significant edema. DATA REVIEWED: Laboratory values: CBC: WBC 8.44, hemoglobin 13.2, hematocrit 40.1, platelet count of 217. Chemistries: Sodium of 142, potassium 3.8, chloride 110, carbon dioxide 21, BUN 18, creatin ine 0.6. Imaging studies: CTA of the chest, abdomen, and pelvis shows aneurysmal dilatation of the ascending aorta with maximum diameter measured at 4.7 cm. There is widening of the mediastinum and thickening of the soft tissues around the ascending aorta suggestive of a mediastinal hematoma. Based on densit y measurements, this does not appear to represent a hyperacute abnormality. There is no area of acti ve extravasation identified. No definitive aortic dissection is identified. ASSESSMENT AND PLAN: The patient is an 88-year-old female with multiple known arterial aneurysms inc luding ascending aortic aneurysm who has not only refused serial followup in the past, but surgical i ntervention as well. On my personal review of her CT scan of the chest, it appears that she may have an intramural hematoma versus sub adventitial hematoma versus a type A aortic dissection with thromb osed false lumen. Regardless, typically if found in the ascending aorta this should still be treated as a type A aortic dissection. I had an extensive discussion with the patient as well as her multip le family members in regard to this diagnosis, and I personally reviewed all the imaging including he r last imaging from last year showing them the differences between last year's scans and this year's scans and why this is concerning. I have recommended surgical repair of this as standard of care. H owever, the patient does not wish to proceed with open heart surgery to repair this given the risks a s well as prolonged recovery, which would be anticipated given her age. I did inform her as well as her family that left untreated, this does have a high mortality rate. However, despite these discuss ions, the patient does not wish to pursue aggressive surgical management. However, given her wishes, I would recommend aggressive medical management in the form of blood pressure control with a heart r ate of around 60, as well as blood pressure control with a systolic blood pressure 120 or less. I robles ve discussed this with the hospitalists, and they understand these recommendations as well. The jordan ent will be continued to be medically managed for this condition, and therefore, I will follow on an as-needed basis. /[id number]/MODL
[2018-05-13] MEDS: LEVOTHYROXINE 50 MCG TAB PO SCH (07:30)
[2018-05-13] MEDS: METOPROLOL TARTRATE 25 MG TAB PO SCH ×2 (09:59→21:22)
--- NOTE | 2018-05-13 12:29 | HOSPPROG ---
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 Per CT surgery there is a chance this could clot off and stabilize -Goal SBP <120 and goal HR ~60, though pt intermittently hypotensive after low dose metoprolol, also very sedated (?side effect of BB) -pain is controlled -Hgb 13.2 --> 10.6, though stable over past 24 hrs * Afib -intermittent RVR - cont low dose metoprolol as BP tolerates -no stroke prevention due to acute bleed * Multiple aneurysm - TAA, AAA, LE, brain -? underlying collagen issue * Hypoxia/SOB - suspect related to leaking aneurysm -CXR with mediastinal widening but otherwise negative -2 LPM * Hypotension - suspect hypovolemia due to anemia + diarrhea, seems hastened by metoprolol -hold parameters on BB * Diarrhea - all household members are sick - suspect viral\ -send GI path panel if persists * Dispo - cont inpt, likely to SNF vs hospice in 1-2 days Pt and family understand Hospice dispo is an option but continue to hope this will clot off and she will stabilize. If she decompensates, then comfort measures are planned, family agrees. If she stabilized then [facility] for SNF. Palliative care following. Subjective: PT quite sleepy today, metoprolol was held last night due to low BP , but she received the 3 doses prior to that. She admits to intermittent SOB. Denies chest pain. No fevers/chills or cough. Very weak. Objective: Vital Signs Temp Pulse Resp BP Pulse Ox 36.4 C 76 11 L 107/74 95 05/13/18 07:31 05/13/18 09:46 05/13/18 09:46 05/13/18 09:46 05/13/18 07:31 Laboratory Results 05/13/18 03:34 05/12/18 03:43 05/12/18 05/13/18 05/14/18 05:59 05:59 05:59 Intake Total 1000 450 Balance 1000 450 PT 14.1 SEC (12.0-15.0) 05/08/18 08:30 INR 1.07 (0.83-1.16) 05/08/18 08:30 - Physical Exam Constitutional: no apparent distress Eyes: PERRL Ears, Nose, Mouth, Throat: moist mucous membranes Cardiovascular: regular rate and rhythym, systolic murmur Respiratory: no respiratory distress, other (bibasilar crackles) Gastrointestinal: normoactive bowel sounds, soft, non-tender abdomen Skin: warm Musculoskeletal: generalized weakness Neurologic: AAOx3 Psychiatric: interacting appropriately ICD10 Worksheet Patient Problems: Problems Problem Status Onset Aortic dissection Acute Acute bronchitis Acute Hematochezia Acute
[2018-05-13] MEDS: ACETAMINOPHEN 325 MG TAB PO PRN (14:51)
--- NOTE | 2018-05-13 16:24 | ASMTCMCOM ---
CM Note CM Note Notes: Renetta from [facility] came and spoke to pt and her daughter Carmella. Pt and daughter would like to go to [facility] under rehab and have palliative w/ [facility]. CM to follow. Plan: [facility] SNF w/ [facility] Date Signed: 05/13/2018 03:44 PM Electronically Signed By:LUNA Farooq
[2018-05-14] MEDS: LEVOTHYROXINE 50 MCG TAB PO SCH (06:09)
[2018-05-14] MEDS: traMADol 50 MG TAB PO PRN (06:58)
[2018-05-14] MEDS: METOPROLOL TARTRATE 25 MG TAB PO SCH ×2 (09:07→21:08)
[2018-05-14] MEDS: ACETAMINOPHEN 325 MG TAB PO PRN (09:08)
--- NOTE | 2018-05-14 11:51 | HOSPPROG ---
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 Per CT surgery there is a chance this could clot off and stabilize -Goal SBP <120 and goal HR ~60, though pt intermittently hypotensive after low dose metoprolol, also very sedated (?side effect of BB) -decrease metoprolol to 6.25 mg bid -pain is controlled -Hgb 13.2 --> 10.6, though stable over past 48 hrs * Afib -intermittent RVR - cont low dose metoprolol as BP tolerates -no stroke prevention due to acute bleed * Multiple aneurysm - TAA, AAA, LE, brain -? underlying collagen issue * Hypoxia/SOB - suspect related to leaking aneurysm -CXR with mediastinal widening but otherwise negative -2 LPM -d/c IVF's * Hypotension - suspect hypovolemia due to anemia + diarrhea, seems hastened by metoprolol -hold parameters on BB * Diarrhea - all household members are sick - suspect viral\ -send GI path panel if persists * Dispo - cont inpt, likely to SNF tomorrow Pt and family understand Hospice dispo is an option but continue to hope this will clot off and she will stabilize. If she decompensates, then comfort measures are planned, family agrees. If she stabilized then [facility] for SNF. Palliative care following. Subjective: Pt feels ok, had some intermittent chest pain, but says it's better now. A bit SOB. She is quite weak. Hasn't ambulated today. Objective: Vital Signs Temp Pulse Resp BP Pulse Ox 36.4 C 108 H 15 127/102 H 97 05/14/18 08:00 05/14/18 08:00 05/14/18 08:00 05/14/18 08:00 05/14/18 08:00 Laboratory Results 05/14/18 04:06 05/14/18 04:06 05/13/18 05/14/18 05/15/18 05:59 05:59 05:59 Intake Total 450 100 Balance 450 100 PT 14.1 SEC (12.0-15.0) 05/08/18 08:30 INR 1.07 (0.83-1.16) 05/08/18 08:30 - Physical Exam Constitutional: no apparent distress Eyes: PERRL Ears, Nose, Mouth, Throat: moist mucous membranes Cardiovascular: regular rate and rhythym Respiratory: no respiratory distress, reduced air movement, inspiratory crackles Gastrointestinal: normoactive bowel sounds, soft, non-tender abdomen Skin: warm Musculoskeletal: generalized weakness Neurologic: AAOx3 Psychiatric: interacting appropriately ICD10 Worksheet Patient Problems: Problems Problem Status Onset Aortic dissection Acute Acute bronchitis Acute Hematochezia Acute
--- NOTE | 2018-05-14 14:31 | ASMTCMCOM ---
CM Note CM Note Notes: Representatives from both [facility] and [facility] Palliative programs met with patient and her daughter Carmella today; they have elected [facility] for palliative care. I have notified [facility]. We will send orders to [facility] when patient is discharged to [facility], likely tomorrow. Date Signed: 05/14/2018 02:30 PM Electronically Signed By:Pearl Zapata RN
[2018-05-15] MEDS: LEVOTHYROXINE 50 MCG TAB PO SCH (05:57)
[2018-05-15] MEDS: METOPROLOL TARTRATE 25 MG TAB PO SCH (08:19)
[2018-05-15 13:34] VITALS: BP 96/72
--- NOTE | 2018-05-15 13:45 | PDIAF ---
- Diagnosis Diagnosis: aortic dissection Code Status: Do Not Resuscitate - Medication Management Discharge Medications: Medications to Continue on Transfer Levothyroxine [Synthroid 50 mcg (*)] 50 mcg PO DAILY06 05/08/18 [Last Taken Unknown] Acetaminophen [Tylenol 325mg (*)] 650 mg PO Q4 PRN tab 05/15/18 [Last Taken Unknown] Metoprolol Tartrate [Lopressor 25 mg (*)] 6.25 mg PO BID #30 tab 05/15/18 [Last Taken Unknown] traMADol [Ultram 50 mg (*)] 25 mg PO Q6HRS PRN #30 tab 05/15/18 [Last Taken Unknown] Discharge Medications: Refer to the Discharge Home Medication list for PRN reason. PICC Care - Routine: N/A - Orders Services needed: Registered Nurse, Physical Therapy, Occupational Therapy Oxygen: 2 LPM Diet Recommendation: no restrictions on diet Diet Texture: Regular Texture Diet, Thin Liquids, Meds Whole w/Liquids - Follow Up Care Current Providers and Referrals: Bee Cheng MD [[facility] [place] Primary Care Provider] - As per Instructions
--- NOTE | 2018-05-15 13:46 | PDIAF ---
- Diagnosis Diagnosis: aortic dissection Code Status: Do Not Resuscitate - Medication Management Discharge Medications: Medications to Continue on Transfer Levothyroxine [Synthroid 50 mcg (*)] 50 mcg PO DAILY06 05/08/18 [Last Taken Unknown] Acetaminophen [Tylenol 325mg (*)] 650 mg PO Q4 PRN tab 05/15/18 [Last Taken Unknown] Metoprolol Tartrate [Lopressor 25 mg (*)] 6.25 mg PO BID #30 tab 05/15/18 [Last Taken Unknown] traMADol [Ultram 50 mg (*)] 25 mg PO Q6HRS PRN #30 tab 05/15/18 [Last Taken Unknown] Discharge Medications: Refer to the Discharge Home Medication list for PRN reason. PICC Care - Routine: N/A - Orders Services needed: Registered Nurse, Physical Therapy, Occupational Therapy Oxygen: 2 LPM Diet Recommendation: no restrictions on diet Diet Texture: Regular Texture Diet, Thin Liquids, Meds Whole w/Liquids Additional Instructions: [facility] - Follow Up Care Current Providers and Referrals: Bee Cheng MD [[facility] Primary Care Provider] - As per Instructions
--- NOTE | 2018-05-15 14:06 | ASMTLACE ---
LACE Length of stay for Answers: 7-13 days current admission Acuity / Level of Answers: Yes Care: Did the patient have an inpatient admission? Comorbidities - select Answers: Chronic pulmonary disease all that apply Diabetes (uncontrolled or controlled) Opioid dependence / Chronic pain Other Notes: Afib, SVEN # of Emergency department Answers: 1-2 visits in the last 6 months Score: 17 Date Signed: 05/15/2018 02:05 PM Electronically Signed By:Angie Ma RN
--- NOTE | 2018-05-15 14:15 | ASDISCHSUM ---
Discharge Information Plan Status:SNF Medically Cleared to Leave:05/15/2018 Discharge Date:05/15/2018 CM D/C Disposition:[facility] Facility ADT D/C Disposition:[facility] Facility Projected Discharge Date:05/10/2018 11:00 AM Transportation at D/C:Wheelchair Van Discharge Delay Reason: Follow-Up Date:05/10/2018 11:00 AM Discharge Slot: Final Diagnosis: Placement Information Referral Type:Palliative Care Referral ID:[id number] Provider Name:[facility] Address 1:[address] [place] Address 2: City:[place] Selection Factors: State:[place] Referral Type:*Residential/SNF Referral ID:[id number] Provider Name:[facility] Address 1:[address] Address 2: City:[place] Selection Factors: State:[place] Patient Contact Information Contact Name:LIZZY Relationship:Daughter Address:[address] [phone] h City:[phone] Alternate Phone: [facility] Code:[place] Email: Financial Information Financial Class:Medicare Primary Plan Desc:MEDICARE INPATIENT Primary Plan Number:[id number] Secondary Plan Desc: Secondary Plan Number: Assessment Information LACE LACE Length of stay for Answers: 7-13 days current admission Acuity / Level of Answers: Yes Care: Did the patient have an inpatient admission? Comorbidities - select Answers: Chronic pulmonary disease all that apply Diabetes (uncontrolled or controlled) Opioid dependence / Chronic pain Other Notes: Fernanadib, SVEN # of Emergency department Answers: 1-2 visits in the last 6 months Score: 17 Date Signed: 05/15/2018 02:05 PM Electronically Signed By:Angie Ma RN [facility] CM Progress Note CM Note CM Note Notes: Pt presented to the Emergency Department with acute throat pain. History includes a thoracic aneurysm without surgical treatment, borderline diabetes, HLD, chronic pain, arthritis, COPD, afib, and bladder issues. Pt is a and lives alone; her daughter is involved in her care. Pt will be admitted for further evaluation and treatment. Discharge needs remain unclear at this time. CM will continue to follow. Discharge Plan: To be determined Date Signed: 05/08/2018 12:28 PM Electronically Signed By:Alondra Valenzuela RN [facility] CM Progress Note CM Note CM Note Notes: 05/10/2018 Case Management Note Met w/pt, son in law Teddy Landeros [phone] ( to daughter SIMONE Weir [phone]), and granddaughter (daughter of Kenan) Nancy [phone]. Nancy identified herself as a speech therapist with the [facility]. Carmella is home with a viral stomach illness. Discussed PT recommendation for SNF rehab. Pt and family in agreement. First choice is [facility], pt has previous stay there and family is in [place]. Second choice is [facility], third is [facility]. Faxed referrals. Maranda from [facility] met w/family. Pt agreeable to [facility] following outpatient. Please see note in paper chart from Maranda. Case Management d/c poc: [facility] pending acceptance with [facility]. Case Management to follow. Date Signed: 05/10/2018 02:22 PM Electronically Signed By:Angie Ma RN [facility] Progress Note CM Note CM Note Notes: CM discussed palliative care, hospice care and in-pt hospice with family. They have decided to wait until pt's ultrasound results from today and the physician's reccomendations are shared with them to revisit what would make the most sense for pt. CM to follow, D/C Plan: SNF rehab and palliative vs in-pt hospice vs SNF and hospice. Date Signed: 05/11/2018 04:01 PM Electronically Signed By:Ale Adame [facility] CM Progress Note CM Note CM Note Notes: Renetta from [facility] came and spoke to pt and her daughter Carmella. Pt and daughter would like to go to [facility] under rehab and have palliative w/ [facility]. CM to follow. Plan: [facility] SNF w/ [facility] palliative Date Signed: 05/13/2018 03:44 PM Electronically Signed By:LUNA Farooq [facility] CM Progress Note CM Note CM Note Notes: Representatives from both [facility] and [facility] Palliative programs met with patient and her daughter Carmella today; they have elected [facility] for palliative care. I have notified [facility]. We will send orders to [facility] when patient is discharged to [facility], likely tomorrow. Date Signed: 05/14/2018 02:30 PM Electronically Signed By:Pearl Zapata RN Case Management Discharge Plan Note Case Management Discharge Discharge Order Complete? Answers: Yes Patient to Obtain Answers: Other Notes: [facility] Medications Transportation Arranged Answers: Other Notes: W/C with O2 arranged by Renetta at [facility] Transport will Pick (Date 05/15/2018 05:00 PM & Time) Faxed Final Orders Answers: Yes Agency/Facility Transfer Answers: Yes Report Printed & Faxed to Receiving Agency Discharge Comments Notes: 05/15/2018 Case Management Note Pt to discharge to [facility]. Renetta arranged transport w/c with O2. Faxed final orders. RN to call report. Notified [facility] of transfer to [facility]. Date Signed: 05/15/2018 02:13 PM Electronically Signed By:Angie Ma RN Intervention Information Intervention Type:*IM-Signed Date of Service:05/14/2018 04:22 PM Patient Type:Inpatient Staff Member:JONELLE Horn, Ilene Hours: Discipline: Severity: Comment:
== END 2018-05-15 17:45 | DRG 300 ==
LOC: F2N 13:08 → F2W 05-09 15:34
PROVIDERS: ADMIT Internal Medicine; ATTEND Hospitalist
DX: I71.01 Dissection of thoracic aorta (principal); I74.11 Embolism and thrombosis of thoracic aorta; I71.2 Thoracic aortic aneurysm, without rupture; I71.4 Abdominal aortic aneurysm, without rupture; I72.4 Aneurysm of artery of lower extremity; I67.1 Cerebral aneurysm, nonruptured; I48.91 Unspecified atrial fibrillation; E11.9 Type 2 diabetes mellitus without complications; E78.5 Hyperlipidemia, unspecified; J44.9 Chronic obstructive pulmonary disease, unspecified; Z85.038 Personal history of other malignant neoplasm of large intestine; Z66 Do not resuscitate; Z51.5 Encounter for palliative care
CPT/HCPCS: 82435-PO; 82565-PO; 82947-PO; 84132-PO; 84295-PO; 84484-PO; 84520-PO; 85014-PO; 92610-GN; 97116-GP; 97161-GP; 97165-GO; 97530-GO; 97530-GP; 97535-GO; G8978-GP-CJ; G8979-GP-CI; G8987-GO-CI; G8988-GO-CI; G8996-GN-CI; G8997-GN-CI; G8998-GN-CI; J0153; J0282; J0360; J0690; J1170; J1265; J1644; J2001; J2260; J2370; J2704; J2720; J2930; J3475; J7060; P9041; Q9967